=== PATIENT | male | born 1995 | race African-American/Black ===

== ENCOUNTER 2019-05-15 17:55 | Emergency (ER) | payer OTHER ==
[2019-05-15] MEDS ORDERED: LIDOCAINE 2% 10 ML MDV SUBQ STA (18:46)
--- NOTE | 2019-05-15 19:20 | ED Physician Documentation ---
PD HPI UPPER EXT INJURY - Stated complaint Stated Complaint: L HAND LAC - Chief complaint Chief Complaint: Laceration - History obtained from History obtained from: Patient - History of Present Illness Location: Left, Hand Type of injury: Laceration Where injury occurred: Home Timing - onset: How many hours ago (1) Timing - duration: Hours (1) Timing - details: Abrupt onset Pain level max: 5 Pain level now: 4 Improved by: Rest, Ice, Immobilization Worsened by: Moving, Palpating Associated symptoms: No: Weakness, Numbness, Tingling, Swelling - Additonal information Additional information: pt is right handed. Accidentally sliced while opening a package Review of Systems Neurologic: denies: Focal weakness, Numbness PD PAST MEDICAL HISTORY - Past Medical History Past Medical History: No - Past Surgical History Past Surgical History: No - Present Medications Home Medications: Ambulatory Orders Medication Instructions Recorded Confirmed No Known Home Medications 05/15/19 05/15/19 - Allergies Allergies/Adverse Reactions: Allergies Allergy/AdvReac Type Severity Reaction Status Date / Time No Known Drug Allergies Allergy Verified 05/15/19 18:07 - Social History Does the pt smoke?: No Smoking Status: Never smoker - Family History Family history: reports: Non contributory - Immunizations Immunizations are current?: Yes Immunizations: TDAP current <10years PD ED PE NORMAL - Vitals Vital signs reviewed: Yes - General General: Alert and oriented X 3, No acute distress - HEENT HEENT: Moist mucous membranes - Derm Derm: Warm and dry - Extremities Extremities: Other (2 cm laceration to the thenar eminence. Neurovascularly intact. No tendon injury. No bony injury.) - Neuro Neuro: Alert and oriented X 3 Results - Vitals Vitals: Oxygen O2 Source Room air Procedures - Laceration (location) L thenar emminence Length in cm: 2 Wound type: Linear, Into subcut fat, Clean Neurovascular status: Sensory intact, Motor intact, Vascular intact Tendon involvement: Tendon intact Anesthesia: Lidocaine 2% Wound Preparation: Irrigated copiously NS, Wound explored, To the base. No: FB identified, FB removed Skin layer closure: Nylon, Interrupted, Size #-0 - enter number (4) Other: Patient tolerated well, No complications, Neurovascular intact, Dressing applied, Tetanus UTD Complexity: Simple PD MEDICAL DECISION MAKING - ED course Complexity details: considered differential, d/w patient ED course: -year-old male with a left thenar eminence laceration. Repaired. Tolerated well. Warnings of infection and instructions on wound care given at bedside. Also counseled on how to minimize scarring. Patient counseled regarding signs and symptoms for which I believe and urgent re-evaluation would be necessary. Patient with good understanding of and agreement to plan and is comfortable going home at this time This document was made in part using voice recognition software. While efforts are made to proofread this document, sound alike and grammatical errors may occur. Departure - Departure Disposition: 01 Home, Self Care Clinical Impression: Hand laceration Qualifiers: Encounter type: initial encounter Foreign body presence: unspecified Laterali ty: left Qualified Code(s): S61.412A - Laceration without foreign body of left hand, initial encounter Condition: Good Instructions: ED Laceration Hand Follow-Up: your,doctor in 1 week [Other] Comments: Return if you worsen. Keep the wound clean. Return especially for redness, swelling or drainage from the wound. Discharge Date/Time: 05/15/19 19:59
[2019-05-15] MEDS ORDERED: BACITRACIN OINT TOP STA (19:49)
[2019-05-15] MEDS ORDERED: BACITRACIN OINT TOP ONE (19:50)
[2019-05-15 19:53] VITALS: BP 137/95
== END 2019-05-15 19:59 | disposition home or self-care (01) ==
LOC: ED 17:55
DX: S61.412A Laceration without foreign body of left hand, initial encounter (principal); W26.0XXA Contact with knife, initial encounter; Y93.89 Activity, other specified
CPT/HCPCS: 12001; 99282; 99283; A9270

== ENCOUNTER 2019-05-28 19:47 | Emergency (ER) | payer OTHER ==
--- NOTE | 2019-05-28 20:23 | ED Physician Documentation ---
PD HPI UPPER EXT INJURY - Stated complaint Stated Complaint: LEFT HAND WOUND - Chief complaint Chief Complaint: Wound - History obtained from History obtained from: Patient - History of Present Illness Location: Left, Hand Type of injury: Laceration (he had gotten small laceration a week ago and was healing okay. Yesterday into today, has some redness and is draining some clear yellow fluids, small amount.) Timing - onset: How many weeks ago (1) Timing - details: Abrupt onset Worsened by: Palpating Associated symptoms: No: Weakness, Numbness Similar symptoms before: Has not had sx before Review of Systems Constitutional: denies: Fever, Chills, Myalgias Neurologic: denies: Focal weakness, Numbness PD PAST MEDICAL HISTORY - Past Medical History Past Medical History: No - Past Surgical History Past Surgical History: No - Present Medications Home Medications: Ambulatory Orders Medication Instructions Recorded Confirmed Doxycycline Hyclate 100 mg PO BID #14 capsule 05/28/19 Mupirocin 1 applic TP TID #15 g 05/28/19 - Allergies Allergies/Adverse Reactions: Allergies Allergy/AdvReac Type Severity Reaction Status Date / Time hydrocodone AdvReac Itching Verified 05/28/19 19:50 ibuprofen AdvReac Itching Verified 05/28/19 19:50 - Social History Does the pt smoke?: No Smoking Status: Never smoker Does the pt drink ETOH?: Yes ETOH Use: Beer Does the pt have substance abuse?: No - Immunizations Immunizations are current?: Yes Immunizations: TDAP current <10years - POLST Patient has POLST: No PD ED PE NORMAL - Vitals Vital signs reviewed: Yes - General General: Alert and oriented X 3, No acute distress, Well developed/nourished - Derm Derm: Normal color, Warm and dry - Extremities Extremities: Other (left thenar area with linear lac that is healing well on most, with small 1/2 cm area of redness and slight dehiscence. No purulence. No deeper induration. ) - Neuro Neuro: No motor deficit, No sensory deficit Results - Vitals Vitals: Oxygen O2 Source Room air PD MEDICAL DECISION MAKING - ED course Complexity details: considered differential (c/w mild infection of the wound. Does not seem deeper nor abscessed. ), d/w patient Departure - Departure Disposition: 01 Home, Self Care Clinical Impression: Wound infection Condition: Stable Record reviewed to determine appropriate education?: Yes Prescriptions: Doxycycline Hyclate 100 mg PO BID #14 capsule Mupirocin 1 applic TP TID #15 g Comments: There may have been just a small blood collection in there that is finally draining (hematoma). However would be concern for an early infectious process so treated with some warm soaks 2-3 times a day and then apply the mupirocin antibiotic ointment. Also take doxycycline oral antibiotic twice daily for a week. Recheck if this is not improving well and stops draining over the next few days. Discharge Date/Time: 05/28/19 21:16
[2019-05-28] MEDS ORDERED: NAPROXEN 250 MG TABLET PO STA (20:39)
[2019-05-28] MEDS ORDERED: DOXYCYCLINE 100 MG TABLET PO STA (20:39)
[2019-05-28] MEDS ORDERED: MUPIROCIN 2% OINT 1 GM TOP STA (20:39)
[2019-05-28 21:18] VITALS: BP 118/58
== END 2019-05-28 21:16 | disposition home or self-care (01) ==
LOC: ED 19:47
DX: S61.412A Laceration without foreign body of left hand, initial encounter (principal); L08.9 Local infection of the skin and subcutaneous tissue, unspecified
CPT/HCPCS: 99282; 99283; A9270